=== PATIENT | female | born 1935 | race Caucasian/White ===

== ENCOUNTER 2016-07-03 13:26 | Inpatient (IN) ==
[2016-07-03] MEDS ORDERED: MORPHINE 2 MG/1 ML SYRINGE IV PRN (13:30)
[2016-07-03] MEDS ORDERED: GLUCAGON 1 MG VIAL IM PRN (13:30)
[2016-07-03] MEDS ORDERED: ACETAMINOPHEN 325 MG TABLET PO PRN (13:30)
[2016-07-03] MEDS ORDERED: ONDANSETRON 4 MG/2 ML VIAL IV PRN (13:30)
[2016-07-03] MEDS ORDERED: NALOXONE 0.4 MG/ML VIAL IV PRN (13:30)
[2016-07-03] MEDS ORDERED: DEXTROSE 50% 25 GM/50 ML VIAL IV PRN (13:30)
--- NOTE | 2016-07-03 13:39 | Family Practice History&Phys ---
Assessment and Plan (1) Cellulitis of left upper extremity Status: Acute Assessment and plan: 07/03/2016, cultures were ordered and patient will be begun on IV vancomycin. I am going to consult orthopedics as there is little concern that she may have septic arthritis of the left thumb. (2) Type 2 diabetes mellitus Status: Acute Assessment and plan: 07/03/2016: Will start her on sliding scale and continue her home medications for now. History of Present Illness Chief complaint: Left hand and wrist pain History of present illness: Ms. Simms is a 81 year old female Patient is a 81-year-old white female presented the office on day of admission complaining of painful swelling to her left wrist and hand. Patient is uncertain if she had any fever but she told me she had a shaking chill last night. She has taken Tylenol this morning and did not have a fever this morning. When she arrived office she is noted to have prominent swelling erythema and warmth to the left wrist and hand. She seemed most tender in the area of her first CM joint. She is noted to have lymphangitic streaking proximally and warmth all the way to the elbow. Patient does have a history of type 2 diabetes mellitus. Her blood sugar was 136 in the office. She denies any trauma or injuries to the area and she has not had any insect stings that she is aware of. She denies rash elsewhere. - Constitutional Constitutional: Present: chills, fatigue, fever(s). Absent: weakness - EENT Eyes: Absent: blurry vision Ears: Absent: ear pain Nose, mouth and throat: Absent: hoarseness, nasal congestion, sinus pressure, sore throat - Cardiovascular Cardiovascular: Absent: chest pain at rest, orthopnea, palpitations, PND - Respiratory Respiratory: Absent: cough, dyspnea - Gastrointestinal Gastrointestinal: Absent: abdominal pain, diarrhea, hematemesis, nausea, vomiting - Genitourinary Genitourinary: Absent: difficulty urinating, dysuria, hematuria, urinary frequency - Musculoskeletal Musculoskeletal: Present: as per HPI, arthralgias, joint swelling. Absent: back pain - Neurological Neurological: Absent: confusion, dizziness, focal weakness, numbness, paresthesias - Psychiatric Psychiatric: Absent: anxiety, confusion - Endocrine Endocrine: Absent: fatigue, polydipsia, polyphagia - Hematologic/Lymphatic Hematologic/Lymphatic: Absent: easy bleeding, easy bruising Medical,Surgical,& Family Hx - Medical History Cardio: History of: Hypertension Endocrine: History of: Diabetes Mellitus (NIDDM), Dyslipidemia - Surgical History Abdominal Surgeries: Surgical HX of: Appendectomy Reproductive Surgeries: Surgical HX of;: Genitourinary Surgery, Hysterectomy - Family History Family History: Reports;: Family Diabetes (In both parents), Family Heart Disease (Mother had heart disease) Exam - Constitutional Exam: General: Objective patient is a well-developed white female no acute distress. Patient is able give an excellent history. HEENT: Pupils equal and reactive to light. Patent nares and airway Neck: No meningismus, adenopathy, thyromegaly. There are no auscultated carotid bruits. Cardiovascular: Regular rhythm. No murmurs or gallops Chest: Clear to auscultation without rales rhonchi wheezes. Abdomen: Soft nontender to palpation No masses, rebound, guarding or tenderness. Neuro: Cranial nerves intact and DTRs and strength symmetric in all extremities. Dermatologic: No evidence of abnormal lesions or masses. Musculoskeletal: Patient's noted to have tenderness, erythema and swelling to the flexor aspect of the left wrist and the base of the left thumb. She has erythema extending up the flexor aspect the left forearm with palpable warmth to the left elbow. She does have pain with motion in the left wrist. Extremities: She has no calf swelling or tenderness Results - Diagnostic Findings Procedure: X-ray: report reviewed by me (X-rays of the left wrist and hand in the office revealed degenerative changes only.)
[2016-07-03 16:59] LABS: Basophils # 0.1 10*3/uL (0.0-0.2); Basophils % 0.3 % (0.0-0.8); Eosinophils % 0.1 % (0.00-10.9); Hemoglobin 11.3 GM/DL (12.0-16.0); Immature Granulocytes % 0.8 %; Immature Granulocytes Absolute 0.14 #; Lymphocytes # 3.4 10*3/uL (1.4-4.0); Mean Corpuscular HGB Conc 34.2 GM/DL (32-36); Mean Corpuscular Hemoglobin 30 PG (27-34); Mean Corpuscular Volume 86.8 FL (87-102); Mean Platelet Volume 11.2 FL (9.6-12.0); Monocytes # 1.4 10*3/uL (0.11-0.8); Neutrophils # 12.6 10*3/uL (1.4-7.4); Neutrophils % 71.8 % (38.7-73.9); Platelet Count 292 T/CUMM (130-400); Red Cell Distribution Width 13.2 % (9.3-17.3); White Blood Count 17.6 T/CUMM (4-12)
[2016-07-03 17:20] LABS: Albumin 3.5 G/DL (3.4-5.0); Bilirubin,Total 0.4 MG/DL (0.2-1.0); Calcium 8.6 MG/DL (8.5-10.1); Osmolality,Calculated 279.4 MOS/KG (273-304); Potassium 4.4 MMOL/L (3.5-5.1); Total Protein 7.8 G/DL (6.4-8.3)
[2016-07-03] MEDS: SODIUM CHLORIDE 0.45% 1,000 ML IV SCH (17:28)
[2016-07-03] MEDS ORDERED: VANCOMYCIN INJ 1,000 MG in SODIUM CHLORIDE 0.9% 250 ML IV ONE (17:30)
[2016-07-03] MEDS: INSULIN LISPRO 100 UNIT/ML SUBCUT SCH ×2 (17:35→22:51)
--- NOTE | 2016-07-03 17:46 | Orthopedic Consult Note ---
History of Present Illness Chief complaint: Left hand pain and swelling History of present illness: Ms. Simms is a 81 year old female who developed left hand pain, swelling and erythema. Her symptoms started Babita morning and a progressively worsened. She has not had any history of pain. She states that she has not had any prior episodes. Her father had a history of the gout. She has been admitted for treatment of left upper extremity cellulitis. Exam left upper extremity shows mild erythema involving her right thumb, hand and distal forearm. It is worse over the radial aspect. She has moderate restriction of active flexion. She just has mild discomfort with passive flexion of her hand. She has mild discomfort with CMC grind. Left upper extremity is warm. No fluctuance or induration is palpable. Radial pulses palpable. Sensation is grossly intact. Radiographs were not available but apparently show first CMC degenerative changes. The patient has a leukocytosis, and elevated C-reactive protein and a high normal uric acid. Impression: Left upper extremity cellulitis. Infectious versus crystalline. Plan: I am going to obtain hand x-rays. I doubt that this is a septic arthritis. I agree with coverage for MRSA with the vancomycin. I have added 4 doses of Toradol for a possible crystalline etiology such as pseudogout or gout. Dr. Adi Patel will reassess her hand tomorrow. Allergies Allergy/AdvReac Type Severity Reaction Status Date / Time Penicillins AdvReac Verified 07/03/16 15:00 12 point system: reviewed and no additional remarkable complaints except as stated Medical,Surgical,& Family Hx - Medical History Cardio: History of: Hypertension HEENT: History of: HEENT Problems (hearing aids) Endocrine: History of: Diabetes Mellitus (NIDDM), Dyslipidemia - Surgical History Abdominal Surgeries: Surgical HX of: Appendectomy Reproductive Surgeries: Surgical HX of;: Genitourinary Surgery (bladder surgery 2017 [facility]), Hysterectomy - Family History Family History: Reports;: Family Diabetes (In both parents), Family Heart Disease (Mother had heart disease) - Social History Smoking Status: Never smoker Frequency of Alcohol Use: None Type of Drug Use: None Results - Labs CBC & BMP: 07/03/16 16:50 07/03/16 16:50
[2016-07-03 17:48] LABS: Apearance,Urine CLOUDY (Clear); Bilirubin,Urine Negative (Negative); Blood, Urine Small mg/dL (Negative); Glucose,Urine (UA) >=500 mg/dL (Negative); Ketones,Urine 5 mg/dL (Negative); Mucus,Urine Occasional /LPF (Occasional); Nitrite,Urine Negative (Negative); Protein,Urine 30 MG/DL; RBC,Urine 9 /HPF (0-4); Squamous Epithelial Cell,Urine Occasional /HPF (0-10); Urine Color Yellow (Yellow); Urine Specific Gravity 1.008 (1.001-1.035); Urine Urobilinogen < 2.0 EU/DL (0.2-1.0); WBC,Urine 490 /HPF (0-6)
--- NOTE | 2016-07-03 18:23 | XRay Report ---
XR hand 3V LT Indication: Redness and swelling of left hand. Comparison: Left wrist x-ray 07/03/2016. Technique: AP, lateral, and oblique views of the left hand. Findings: Bony changes of osteoarthritis are demonstrated. Bone mineralization demonstrates a nonspecific pattern of demineralization. Remote fracture of the ulnar styloid is suggested. No acute fractures or dislocations involving the carpal bones, metacarpals, or fingers are demonstrated. Impression: 1. Bony changes of osteoarthritis are present. 2. Nonspecific demineralization of bony structure is present. 07/03/2016 6:18 PM PROCEDURE INTERPRETED AT [facility] DEPARTMENT OF RADIOLOGY Final Report Signed by: Dr. Rowdy Johansen
[2016-07-03] MEDS ORDERED: VANCOMYCIN INJ 1,000 MG in SODIUM CHLORIDE 0.9% 250 ML IV SCH (21:00)
[2016-07-03] MEDS ORDERED: ENOXAPARIN 30 MG/0.3 ML SYRINGE SUBCUT SCH (21:00)
[2016-07-03] MEDS: DOCUSATE SODIUM 100 MG CAPSULE PO SCH (21:19)
[2016-07-03] MEDS: KETOROLAC 15 MG/1 ML VIAL IV SCH (21:19)
[2016-07-04] MEDS: KETOROLAC 15 MG/1 ML VIAL IV SCH ×3 (00:10→12:03)
[2016-07-04 07:38] LABS: Risk Ratio 2.8
--- NOTE | 2016-07-04 07:57 | Family Practice Progress Note ---
Family Practice - PN: Subj Interval history: Patient states she is feeling better this morning but still having pain swelling in her left wrist. Repeat x-rays showed degenerative changes. Her CRP was elevated at 3.9% right apparently was not done. Patient does not have any problem with vancomycin. Exam (Progress Note) - Constitutional Vitals: Period Temp Pulse Resp BP Sys/Burris Pulse Ox Last 24 Hr 98.1 F-100.4 F 82-105 18-20 148-167/75-78 95-98 Exam: Objective well-developed white female no acute distress. She segments of the bed and eating her breakfast. Patient states left wrist feels at least 50% better than yesterday. Cardiovascular: Heart rates regular without murmurs or gallops. Respiratory: Lungs clear to auscultation bilaterally. Extremities: Patient has persistent swelling and tenderness the left wrist though she does have lessening of the lymphangitic streaking in the flexor aspect of the left forearm. Results - Labs CBC & BMP: 07/03/16 16:50 07/03/16 16:50 Lab Results: I have reviewed the past 24 hour labs Assessment and Plan (1) Cellulitis of left upper extremity Status: Acute Assessment and plan: 07/03/2016, cultures were ordered and patient will be begun on IV vancomycin. I am going to consult orthopedics as there is little concern that she may have septic arthritis of the left thumb. 07/04/2016: Patient shows clinical improvement Current Visit: Yes (2) Type 2 diabetes mellitus Status: Acute Assessment and plan: 07/03/2016: Will start her on sliding scale and continue her home medications for now. 07/04/2016: Patient's on sliding scale. Patient has not had a blood sugar since admission that I can find in the chart. Current Visit: Yes
[2016-07-04] MEDS: INSULIN LISPRO 100 UNIT/ML SUBCUT SCH ×4 (10:20→21:04)
[2016-07-04] MEDS: PANTOPRAZOLE 40 MG TABLET PO SCH (10:20)
[2016-07-04] MEDS: DOCUSATE SODIUM 100 MG CAPSULE PO SCH ×2 (10:20→21:04)
--- NOTE | 2016-07-04 11:39 | Orthopedic Progress Note ---
Orthopedics - Subjective Interval history: Following up from Dr. Del Real's consult yesterday patient reports marked improvement she is able to flex and extend all digits including the thumb she does have some diffuse swelling and mild erythema over the dorsum of the hand by her report it is markedly improved. Will continue current treatment will recheck tomorrow before discharge Exam - Constitutional Vitals: Period Temp Pulse Resp BP Sys/Burris Pulse Ox Last 24 Hr 97.6 F-100.4 F 82-105 18-20 144-167/66-78 95-98 Results - Labs CBC & BMP: 07/03/16 16:50 07/03/16 16:50
[2016-07-04] MEDS: ENOXAPARIN 40 MG/0.4 ML SYRINGE SUBCUT SCH (22:01)
[2016-07-05 03:20] LABS: Basophils # 0.1 10*3/uL (0.0-0.2); Basophils % 0.6 % (0.0-0.8); Eosinophils # 0.4 10*3/uL (0.0-0.87); Eosinophils % 3.4 % (0.00-10.9); Hematocrit 30.6 VOL% (35.7-47.0); Hemoglobin 10.3 GM/DL (12.0-16.0); Immature Granulocytes Absolute 0.12 #; Lymphocytes # 3.5 10*3/uL (1.4-4.0); Lymphocytes % 28.3 % (21.3-54.2); Mean Corpuscular HGB Conc 33.7 GM/DL (32-36); Mean Corpuscular Hemoglobin 30 PG (27-34); Mean Corpuscular Volume 88.2 FL (87-102); Mean Platelet Volume 11.7 FL (9.6-12.0); Monocytes # 1.1 10*3/uL (0.11-0.8); Monocytes % 8.7 % (1.7-12.7); Neutrophils # 7.1 10*3/uL (1.4-7.4); Platelet Count 277 T/CUMM (130-400); Red Blood Count 3.47 MC/CUMM (3.8-5.5); Red Cell Distribution Width 13.2 % (9.3-17.3); White Blood Count 12.2 T/CUMM (4-12)
[2016-07-05] MEDS ORDERED: VANCOMYCIN INJ 1,000 MG in SODIUM CHLORIDE 0.9% 250 ML IV SCH (05:30)
--- NOTE | 2016-07-05 07:17 | Family Practice Progress Note ---
Family Practice - PN: Subj Interval history: Patient states her left hand and wrist are not feeling much better this morning. There is still notable swelling in the left wrist and base of the thumb. She has erythema proximal to this area extending all the way close to the elbow. She states is still quite sore. Exam (Progress Note) - Constitutional Vitals: Period Temp Pulse Resp BP Sys/Burris Pulse Ox Last 24 Hr 97.6 F-98.7 F 77-86 20-20 140-161/60-76 94-99 Exam: Objective well-developed white female no acute distress. She sitting up in a chair and is in no acute distress at present. She states her left wrist and hand stool quite painful. Cardiovascular: Heart rates regular without murmurs or gallops. Respiratory: Lungs clear to auscultation bilaterally. Extremities: Patient has persistent swelling and tenderness the left wrist. This is a bit worse from yesterday Results - Labs CBC & BMP: 07/05/16 02:03 07/03/16 16:50 Lab Results: I have reviewed the past 24 hour labs Assessment and Plan (1) Cellulitis of left upper extremity Status: Acute Assessment and plan: 07/03/2016, cultures were ordered and patient will be begun on IV vancomycin. I am going to consult orthopedics as there is little concern that she may have septic arthritis of the left thumb. 07/04/2016: Patient shows clinical improvement 07/05/2016: We will add IV Levaquin Current Visit: Yes (2) Type 2 diabetes mellitus Status: Acute Assessment and plan: 07/03/2016: Will start her on sliding scale and continue her home medications for now. 07/04/2016: Patient's on sliding scale. Patient has not had a blood sugar since admission that I can find in the chart. 07/05/2016: We will restart her glimepiride. Current Visit: Yes
--- NOTE | 2016-07-05 07:38 | Orthopedic Progress Note ---
Orthopedics - Subjective Interval history: States hand feels better no localized infection has diffuse swelling and erythema extending into the mid distal forearm volarly, clinically appears to be a cellulitis. Again no local process or abscess. Discussed. Continue to expect improvement with the IV antibiotic course if changes or worsens let me know Exam - Constitutional Vitals: Period Temp Pulse Resp BP Sys/Burris Pulse Ox Last 24 Hr 97.6 F-98.7 F 77-86 20-20 140-161/60-76 94-99 Results - Labs CBC & BMP: 07/05/16 02:03 07/03/16 16:50
[2016-07-05] MEDS: INSULIN LISPRO 100 UNIT/ML SUBCUT SCH ×4 (09:01→21:34)
[2016-07-05] MEDS: GLIMEPIRIDE 2 MG TABLET PO SCH ×2 (09:03→16:35)
[2016-07-05] MEDS: sitaGLIPtin 25 MG TABLET PO SCH (09:03)
[2016-07-05] MEDS: RAMIPRIL 5 MG CAPSULE PO SCH (09:04)
[2016-07-05] MEDS: DOCUSATE SODIUM 100 MG CAPSULE PO SCH ×2 (09:04→21:34)
[2016-07-05] MEDS: amLODIPine 2.5 MG TABLET PO SCH (09:05)
[2016-07-05] MEDS: PANTOPRAZOLE 40 MG TABLET PO SCH (09:05)
[2016-07-05] MEDS: LEVOFLOXACIN INJ 250 MG in PREMIX 1 EACH IV SCH (13:25)
[2016-07-05] MEDS: ENOXAPARIN 40 MG/0.4 ML SYRINGE SUBCUT SCH (21:34)
[2016-07-05] MEDS: SIMVASTATIN 20 MG TABLET PO SCH (21:34)
[2016-07-05] MEDS: INSULIN GLARGINE 100 UNIT/ML SUBCUT SCH (21:36)
--- NOTE | 2016-07-06 07:27 | Family Practice Progress Note ---
Family Practice - PN: Subj Interval history: Patient states she is feeling much better this morning and her left forearm and wrist are markedly improved. She has positive blood cultures for gram-positive cocci. She tells me she did have a tooth removed about 2 weeks ago and did not take any antibiotics apparently before that. Exam (Progress Note) - Constitutional Vitals: Period Temp Pulse Resp BP Sys/Burris Pulse Ox Last 24 Hr 98.2 F-98.9 F 79-85 18-20 142-158/64-83 94-98 Exam: Objective well-developed white female no acute distress. She sitting up in a chair and is in no acute distress at present. Patient states her left wrist and forearm are feeling much better this morning. Cardiovascular: Heart rates regular without murmurs or gallops. Respiratory: Lungs clear to auscultation bilaterally. Extremities: Patient has persistent swelling and tenderness the left wrist. This is improved from yesterday Results - Labs CBC & BMP: 07/05/16 02:03 07/03/16 16:50 Lab Results: I have reviewed the past 24 hour labs Assessment and Plan (1) Cellulitis of left upper extremity Status: Acute Assessment and plan: 07/03/2016, cultures were ordered and patient will be begun on IV vancomycin. I am going to consult orthopedics as there is little concern that she may have septic arthritis of the left thumb. 07/04/2016: Patient shows clinical improvement 07/05/2016: We will add IV Levaquin 07/06/2016: Patient shows definite improvement in her left forearm wrist and hand. Current Visit: Yes (2) Type 2 diabetes mellitus Status: Acute Assessment and plan: 07/03/2016: Will start her on sliding scale and continue her home medications for now. 07/04/2016: Patient's on sliding scale. Patient has not had a blood sugar since admission that I can find in the chart. 07/05/2016: We will restart her glimepiride. 07/06/2016: Blood sugars are improved. Current Visit: Yes (3) UTI (urinary tract infection) Status: Acute Assessment and plan: 07/06/2016: And awaiting the ID and sensitivity of her UTI Current Visit: Yes
[2016-07-06] MEDS: INSULIN LISPRO 100 UNIT/ML SUBCUT SCH ×4 (08:59→21:26)
[2016-07-06] MEDS: RAMIPRIL 5 MG CAPSULE PO SCH (09:01)
[2016-07-06] MEDS: DOCUSATE SODIUM 100 MG CAPSULE PO SCH ×2 (09:02→20:53)
[2016-07-06] MEDS: sitaGLIPtin 25 MG TABLET PO SCH (09:02)
[2016-07-06] MEDS: GLIMEPIRIDE 2 MG TABLET PO SCH ×2 (09:02→16:38)
[2016-07-06] MEDS: PANTOPRAZOLE 40 MG TABLET PO SCH (09:02)
[2016-07-06] MEDS: LEVOFLOXACIN INJ 250 MG in PREMIX 1 EACH IV SCH (09:03)
[2016-07-06] MEDS: amLODIPine 2.5 MG TABLET PO SCH (09:03)
[2016-07-06] MEDS: SIMVASTATIN 20 MG TABLET PO SCH (20:53)
[2016-07-06] MEDS: ENOXAPARIN 40 MG/0.4 ML SYRINGE SUBCUT SCH (20:53)
[2016-07-06] MEDS: INSULIN GLARGINE 100 UNIT/ML SUBCUT SCH (21:26)
[2016-07-06 22:24] LABS: Calcium 8.3 MG/DL (8.5-10.1); Osmolality,Calculated 287.7 MOS/KG (273-304); Potassium 4.5 MMOL/L (3.5-5.1)
[2016-07-06] MEDS: VANCOMYCIN INJ 1,000 MG in SODIUM CHLORIDE 0.9% 250 ML IV SCH (23:15)
[2016-07-07] MEDS: DOCUSATE SODIUM 100 MG CAPSULE PO SCH ×2 (08:15→21:29)
[2016-07-07] MEDS: GLIMEPIRIDE 2 MG TABLET PO SCH ×2 (08:15→16:19)
[2016-07-07] MEDS: sitaGLIPtin 25 MG TABLET PO SCH (08:15)
[2016-07-07] MEDS: INSULIN LISPRO 100 UNIT/ML SUBCUT SCH ×4 (08:15→21:27)
--- NOTE | 2016-07-07 08:15 | Family Practice Progress Note ---
Family Practice - PN: Subj Interval history: Patient states she is feeling much better this morning and her left hand wrist and forearm are certainly improved. Patient states she does not have any more frequency or dysuria. Her urine culture was positive for staph and sensitivities showed both strains are sensitive to vancomycin. I am going to stop her Levaquin. I am going to ask Dr. Camarillo to see her as well. Exam (Progress Note) - Constitutional Vitals: Period Temp Pulse Resp BP Sys/Burris Pulse Ox Last 24 Hr 9.6 F-98.2 F 72-81 18-20 146-163/46-69 97-100 Exam: Objective well-developed white female no acute distress. She sitting up in a chair and is in no acute distress at present. Patient states her left wrist and forearm are feeling much better this morning. Cardiovascular: Heart rates regular without murmurs or gallops. Respiratory: Lungs clear to auscultation bilaterally. Extremities: Patient has persistent swelling and tenderness the left wrist. This is improved from yesterday Results - Labs CBC & BMP: 07/05/16 02:03 07/06/16 20:15 Lab Results: I have reviewed the past 24 hour labs Assessment and Plan (1) Cellulitis of left upper extremity Status: Acute Assessment and plan: 07/03/2016, cultures were ordered and patient will be begun on IV vancomycin. I am going to consult orthopedics as there is little concern that she may have septic arthritis of the left thumb. 07/04/2016: Patient shows clinical improvement 07/05/2016: We will add IV Levaquin 07/06/2016: Patient shows definite improvement in her left forearm wrist and hand. 07/07/2016: Patient certainly showing improvement. Current Visit: Yes (2) Type 2 diabetes mellitus Status: Acute Assessment and plan: 07/03/2016: Will start her on sliding scale and continue her home medications for now. 07/04/2016: Patient's on sliding scale. Patient has not had a blood sugar since admission that I can find in the chart. 07/05/2016: We will restart her glimepiride. 07/06/2016: Blood sugars are improved. 07/07/2016: Blood sugars are still a little bit elevated. Will increase her basal insulin. Current Visit: Yes (3) UTI (urinary tract infection) Status: Acute Assessment and plan: 07/06/2016: And awaiting the ID and sensitivity of her UTI Current Visit: Yes
[2016-07-07] MEDS: PANTOPRAZOLE 40 MG TABLET PO SCH (08:16)
[2016-07-07] MEDS: RAMIPRIL 5 MG CAPSULE PO SCH (08:16)
[2016-07-07] MEDS: amLODIPine 2.5 MG TABLET PO SCH (08:16)
[2016-07-07] MEDS: ENOXAPARIN 40 MG/0.4 ML SYRINGE SUBCUT SCH (21:27)
[2016-07-07] MEDS: INSULIN GLARGINE 100 UNIT/ML SUBCUT SCH (21:28)
[2016-07-07] MEDS: SIMVASTATIN 20 MG TABLET PO SCH (21:29)
[2016-07-07] MEDS: VANCOMYCIN INJ 1,000 MG in SODIUM CHLORIDE 0.9% 250 ML IV SCH (23:28)
[2016-07-08 06:20] LABS: Basophils # 0.1 10*3/uL (0.0-0.2); Basophils % 0.5 % (0.0-0.8); Eosinophils # 0.4 10*3/uL (0.0-0.87); Eosinophils % 4.1 % (0.00-10.9); Hemoglobin 9.7 GM/DL (12.0-16.0); Immature Granulocytes % 1.1 %; Immature Granulocytes Absolute 0.11 #; Lymphocytes # 2.8 10*3/uL (1.4-4.0); Lymphocytes % 28.6 % (21.3-54.2); Mean Corpuscular HGB Conc 33.4 GM/DL (32-36); Mean Corpuscular Hemoglobin 30 PG (27-34); Mean Corpuscular Volume 88.4 FL (87-102); Mean Platelet Volume 11.5 FL (9.6-12.0); Monocytes # 0.8 10*3/uL (0.11-0.8); Monocytes % 7.9 % (1.7-12.7); Neutrophils # 5.7 10*3/uL (1.4-7.4); Neutrophils % 57.8 % (38.7-73.9); Platelet Count 339 T/CUMM (130-400); Red Blood Count 3.28 MC/CUMM (3.8-5.5); Red Cell Distribution Width 13.4 % (9.3-17.3); White Blood Count 9.8 T/CUMM (4-12)
--- NOTE | 2016-07-08 07:44 | Family Practice Progress Note ---
Family Practice - PN: Subj Interval history: Patient states she is feeling much better and anxious to go home. Her urine cultures positive for Staphylococcus hominis and lugdenisis. I have asked Dr. Camarillo to see her today. Her left arm and wrist are almost back to normal. She has no erythema of the proximal forearm or lymphangitic streaking. She has very little if any pain with motion of the left wrist. Exam (Progress Note) - Constitutional Vitals: Period Temp Pulse Resp BP Sys/Burris Pulse Ox Last 24 Hr 97.4 F-99.5 F 77-94 18-20 133-169/64-76 95-100 Exam: Objective well-developed white female no acute distress. She sitting up in a chair and is in no acute distress at present. Patient states her left arm feels back to her normal. Cardiovascular: Heart rates regular without murmurs or gallops. Respiratory: Lungs clear to auscultation bilaterally. Extremities: Patient has marked improvement in the appearance of the left upper extremity. Results - Labs CBC & BMP: 07/08/16 05:34 07/06/16 20:15 Lab Results: I have reviewed the past 24 hour labs Assessment and Plan (1) Cellulitis of left upper extremity Status: Acute Assessment and plan: 07/03/2016, cultures were ordered and patient will be begun on IV vancomycin. I am going to consult orthopedics as there is little concern that she may have septic arthritis of the left thumb. 07/04/2016: Patient shows clinical improvement 07/05/2016: We will add IV Levaquin 07/06/2016: Patient shows definite improvement in her left forearm wrist and hand. 07/07/2016: Patient certainly showing improvement. 07/08/2016: Patient certainly clinically improved. I have consult Dr. Berlin Jane for her opinion as well. Current Visit: Yes (2) Type 2 diabetes mellitus Status: Acute Assessment and plan: 07/03/2016: Will start her on sliding scale and continue her home medications for now. 07/04/2016: Patient's on sliding scale. Patient has not had a blood sugar since admission that I can find in the chart. 07/05/2016: We will restart her glimepiride. 07/06/2016: Blood sugars are improved. 07/07/2016: Blood sugars are still a little bit elevated. Will increase her basal insulin. 07/08/2016: Blood sugars are improved yesterday. Current Visit: Yes (3) UTI (urinary tract infection) Status: Acute Assessment and plan: 07/06/2016: And awaiting the ID and sensitivity of her UTI Current Visit: Yes
[2016-07-08] MEDS: PANTOPRAZOLE 40 MG TABLET PO SCH (08:01)
[2016-07-08] MEDS: GLIMEPIRIDE 2 MG TABLET PO SCH (08:01)
[2016-07-08] MEDS: amLODIPine 2.5 MG TABLET PO SCH (08:01)
[2016-07-08] MEDS: RAMIPRIL 5 MG CAPSULE PO SCH (08:01)
[2016-07-08] MEDS: DOCUSATE SODIUM 100 MG CAPSULE PO SCH (08:01)
[2016-07-08] MEDS: sitaGLIPtin 25 MG TABLET PO SCH (08:02)
[2016-07-08] MEDS: INSULIN LISPRO 100 UNIT/ML SUBCUT SCH ×2 (08:37→15:38)
[2016-07-08] MEDS: SODIUM CHLORIDE 0.45% 1,000 ML IV SCH (08:40)
[2016-07-08 13:46] VITALS: BP 140/65
--- NOTE | 2016-07-08 15:15 | Discharge Summary ---
Hospital Course - Hospital Course Hospital Course: Patient is a white female present all day of admission with increased pain swelling to her left wrist hand and forearm. Has history of subjective fevers noted to have markedly elevated white blood count 17,000. Patient did have elevated sed rate and CRP. Placed on IV vancomycin he had patient also had urinary tract infection and she had positive urine culture for staph. X-rays left wrist and hand revealed nothing but degenerative changes. Patient was seen by orthopedic surgery did not think this represented septic arthritis. She did improve with IV antibiotic therapy and she was seen by Dr. Berlin Jane as well. Discharge home today follow-up me in the office in 2 weeks time. Diagnosis - Discharge Diagnosis (1) Cellulitis of left upper extremity Status: Acute (2) Type 2 diabetes mellitus Status: Acute (3) UTI (urinary tract infection) Status: Acute Discharge Plan - Discharge Data Disposition: Disch To Home/Self Care Condition at Discharge: Stable Discharge Diet: advance to your usual diet Activity: resume usual activities as tolerated Hygiene: no restrictions Weight Bearing at Discharge: full weight bearing Contact your physician if you experience:: fever over 101 - Discharge Medications New amLODIPine [Norvasc] 2.5 mg PO DAILY tablet Cefuroxime Tab [Ceftin] 500 mg PO BID #10 tablet sitaGLIPtin [Januvia] 50 mg PO DAILY tablet Acetaminophen Tab [Tylenol Tab] 650 mg PO Q6H PRN tablet PRN Reason: Fever > 100.4 Or Headache Glimepiride [Amaryl] 2 mg PO BID W/MEALS tablet Continue Ramipril [Altace] 10 mg PO DAILY Insulin Detemir [Levemir] 40 unit SUBCUT BEDTIME Simvastatin [Zocor] 20 mg PO DAILY Discontinued Glimepiride [Glimepiride] 2 mg PO BID amLODIPine [Norvasc] 2.5 mg PO DAILY hydroCHLOROthiazide [Hydrochlorothiazide] 25 mg PO DAILY Linagliptin [Tradjenta] 5 mg PO DAILY metFORMIN [Glucophage] 500 mg PO BID W/MEALS - Follow Up or Referral - Forms/Instructions Exam - Constitutional Vitals: Period Temp Pulse Resp BP Sys/Burris Pulse Ox Last 24 Hr 97.4 F-99.5 F 76-94 18-20 140-169/64-76 93-99 Exam: Objective well-developed white female no acute distress. She sitting up in a chair and is in no acute distress at present. Patient states her left arm feels back to her normal. Cardiovascular: Heart rates regular without murmurs or gallops. Respiratory: Lungs clear to auscultation bilaterally. Extremities: Patient has marked improvement in the appearance of the left upper extremity. Discharge Results Procedures and tests throughout hospitalization: Pending Orders 07/03/16 16:50 Blood Culture Stat 07/08/16 22:30 Vancomycin,Trough Stat Labs on day of discharge: Labs from last 24 hours 07/08/16 07/08/16 07/08/16 11:11 08:04 05:34 WBC 9.8 RBC 3.28 L Hgb 9.7 L Hct 29.0 L MCV 88.4 MCH 30 MCHC 33.4 RDW 13.4 Plt Count 339 D MPV 11.5 Neut % (Auto) 57.8 Lymph % (Auto) 28.6 [place] % (Auto) 7.9 Eos % (Auto) 4.1 Baso % (Auto) 0.5 Neut # (Auto) 5.7 Lymph # (Auto) 2.8 [place] # (Auto) 0.8 Eos # (Auto) 0.4 Baso # (Auto) 0.1 Immature Gran % 1.1 Nucleated RBC % 0.0 Immature Gran # 0.11 Nucleated RBCs # 0.00 POC Glucose 310 H 243 H 07/07/16 07/07/16 21:06 15:22 WBC RBC Hgb Hct MCV MCH MCHC RDW Plt Count MPV Neut % (Auto) Lymph % (Auto) [place] % (Auto) Eos % (Auto) Baso % (Auto) Neut # (Auto) Lymph # (Auto) [place] # (Auto) Eos # (Auto) Baso # (Auto) Immature Gran % Nucleated RBC % Immature Gran # Nucleated RBCs # POC Glucose 287 H 298 H Preliminary micro results at discharge 07/03/16 16:50 Blood Culture - Preliminary Blood No growth at 3 days 07/03/16 16:50 Blood Culture - Preliminary Blood No growth at 3 days DS: Provider Date of admission: 07/03/16 13:30 Primary care physician: Reece Juarez MD Attending physician on admission: Reece Juarez MD Consults: 07/03/16 13:30 Consult to Case Mgmt/Social Srvs [CONS] Routine Reason for Case Mgmt/Social Srvs: Discharge Planning 07/03/16 13:33 Consult to Physician [CONS] Routine Comment: Consulting Provider: Awais Del Real Jr. Person Notified: [email or web address] Date Notified: 07/03/16 Time Notified: 14:45 07/03/16 13:35 Consult to Pharmacy [CONS] Routine Reason for Pharmacy Consult: Dose/Manage Vancomycin 07/07/16 08:13 Consult to Physician [CONS] Routine Comment: Consulting Provider: Cassie Camarillo Person Notified: chris Date Notified: 07/08/16 Time Notified: 09:10 Discharging clinician: Reece Juarez MD Expected date of discharge: 07/08/16
--- NOTE | 2016-07-08 15:17 | Infectious Disease Consult ---
Assessment and Plan (1) Cellulitis of left upper extremity Status: Acute Assessment and plan: CLinically this has resolved so I am ok with stopping the vancomycin. Current Visit: Yes (2) Type 2 diabetes mellitus Status: Acute Current Visit: Yes (3) UTI (urinary tract infection) Status: Acute Assessment and plan: THese coag neg staph spp would not usually be expected to cause UTI, but her recent bladder surgery may be the risk factor. She is clinically much improved and we can let her go home on cefuroxime 500mg bid x 3 days. She has rash in reaction to PCN 57yrs ago and I do not expect her to have a problem with the cefuroxime. Thank you very much for the consult. D/W Dr Juarez D/W patient's at bedside Current Visit: Yes History of Present Illness Chief complaint: LUE cellulitis, UTI History of present illness: Ms. Simms is a 81 year old female admitted with pain and swelling to Lt forearm and hand. She was put on empiric vancomycin. She incidentally reported dysuria and suprapubic tenderness, having had bladder surgery about 3weeks ago for prolapse. Urine culture was positive for s. hominis and S. lugdunensis. Her urine symptoms have resolved and her Lt arm swelling and pain have just about resolved as well. She wants to go home today and I am asked to advise oral antibiotics for discharge. She has not had any fever since the 100.4 she had on admission. Home Medications Medication Instructions Recorded Confirmed Type Insulin Detemir [Levemir] 40 unit SUBCUT BEDTIME 07/04/16 07/04/16 History Ramipril [Altace] 10 mg PO DAILY 07/04/16 07/04/16 History Simvastatin [Zocor] 20 mg PO DAILY 07/04/16 07/04/16 History Acetaminophen Tab [Tylenol Tab] 650 mg PO Q6H PRN tablet 07/08/16 Rx Cefuroxime Tab [Ceftin] 500 mg PO BID #10 tablet 07/08/16 Rx Glimepiride [Amaryl] 2 mg PO BID W/MEALS tablet 07/08/16 Rx amLODIPine [Norvasc] 2.5 mg PO DAILY tablet 07/08/16 Rx sitaGLIPtin [Januvia] 50 mg PO DAILY tablet 07/08/16 Rx Allergies Allergy/AdvReac Type Severity Reaction Status Date / Time Penicillins AdvReac Verified 07/03/16 15:00 12 point system: reviewed and no additional remarkable complaints except as stated (per HPI) Medical,Surgical,& Family Hx - Medical History Cardio: History of: Hypertension HEENT: History of: HEENT Problems (hearing aids) Endocrine: History of: Diabetes Mellitus (NIDDM), Dyslipidemia - Surgical History Abdominal Surgeries: Surgical HX of: Appendectomy Reproductive Surgeries: Surgical HX of;: Genitourinary Surgery (bladder surgery 2017 [facility]), Hysterectomy - Family History Family History: Reports;: Family Diabetes (In both parents), Family Heart Disease (Mother had heart disease) - Social History Smoking Status: Never smoker Frequency of Alcohol Use: None Type of Drug Use: None Infectious Disease Exam H&P - Constitutional Vitals: Vital Signs Temp Pulse Resp BP Pulse Ox 98.4 F 76 18 140/65 97 07/08/16 12:00 07/08/16 12:00 07/08/16 12:00 07/08/16 12:00 07/08/16 12:00 Intake and Output 07/07/16 07/08/16 07/08/16 23:59 07:59 15:59 Intake Total 950 / 950 250 / 250 Output Total 0 / 0 0 / 0 Balance 950 / 950 250 / 250 Intake: IV 250 / 250 250 / 250 Vancomycin Inj 1,000 mg 250 / 250 250 / 250 In Ns 250 ml @ 250 mls/hr IV Q24H [facility] Rx#: [id number] Oral 700 / 700 Output: Stool 0 / 0 0 / 0 Other: Emesis 0 0 Voiding Method Toilet Toilet # Voids 5 4 # Bowel Movements 1 Weight 63.458 kg Patient Weight 07/08/16 23:59 Weight 63.458 kg Exam: General: Patient comfortable, sitting in chair HEENT: Mucous membranes pink and moist, anicteric acyanotic, NITA, no oropharyngeal exudates Neck: Supple, no thyroid gland enlargement, no lymphadenopathy Respiratory system: Breath sounds vesicular, no crepitations or wheezes Cardiovascular: Normal S1 and S2, no murmurs appreciated Abdomen: Normal bowel sounds, soft nontender throughout, no organomegaly or mass Genitourinary: No suprapubic pain or bladder distention Extremities: swelling to LT forearm and hand essentially resolved, there is no erythema or hyperemia. She has no leg edema Skin: No rash Reports - Labs CBC & BMP: 07/08/16 05:34 07/06/16 20:15 Labs: Laboratory Results - last 24 hr 07/07/16 07/07/16 07/08/16 15:22 21:06 05:34 WBC 9.8 RBC 3.28 L Hgb 9.7 L Hct 29.0 L MCV 88.4 MCH 30 MCHC 33.4 RDW 13.4 Plt Count 339 D MPV 11.5 Neut % (Auto) 57.8 Lymph % (Auto) 28.6 Bradford % (Auto) 7.9 Eos % (Auto) 4.1 Baso % (Auto) 0.5 Neut # (Auto) 5.7 Lymph # (Auto) 2.8 Bradford # (Auto) 0.8 Eos # (Auto) 0.4 Baso # (Auto) 0.1 Immature Gran % 1.1 Nucleated RBC % 0.0 Immature Gran # 0.11 Nucleated RBCs # 0.00 POC Glucose 298 H 287 H 07/08/16 07/08/16 08:04 11:11 WBC RBC Hgb Hct MCV MCH MCHC RDW Plt Count MPV Neut % (Auto) Lymph % (Auto) Bradford % (Auto) Eos % (Auto) Baso % (Auto) Neut # (Auto) Lymph # (Auto) Bradford # (Auto) Eos # (Auto) Baso # (Auto) Immature Gran % Nucleated RBC % Immature Gran # Nucleated RBCs # POC Glucose 243 H 310 H - Diagnostic Findings Procedure: X-ray: report reviewed by me (Lt hand exray without acute bony pathology)
== END 2016-07-08 16:23 | disposition home or self-care (01) | DRG 603 ==
LOC: N.2E 13:30
PROVIDERS: ADMIT Family Medicine; ATTEND Family Medicine